=== PATIENT | male | born 1965 | race African-American/Black ===

== ENCOUNTER 2023-01-15 12:33 | Emergency (ER) | payer SELFPAY ==
[~2023-01-15] VITALS: Ht 177.8 cm; Wt 73.0 kg
[2023-01-15 12:37] VITALS: BP 136/101; PULSE 99; RESP 16; TEMP 98.2; O2SAT 98
== END 2023-01-15 14:33 | disposition home or self-care (01) ==
LOC: ER 13:43
DX: F43.9 Reaction to severe stress, unspecified (principal); Z63.0 Problems in relationship with spouse or partner
CPT/HCPCS: 99283